=== PATIENT | female | born 1990 ===

== ENCOUNTER 2020-03-30 18:14 | Inpatient (IN) ==
[2020-03-30] MEDS ORDERED: *HR* LORazepam 2 MG/ML VIAL IM PRN (18:37)
[2020-03-30] MEDS ORDERED: haloperidoL 5 MG TABLET PO PRN (18:37)
[2020-03-30] MEDS ORDERED: Haloperidol Lactate 5 MG/ML VIAL IM PRN (18:37)
[2020-03-30] MEDS ORDERED: MOM Conc 10 ML UD.LIQ PO PRN (18:37)
[2020-03-30] MEDS ORDERED: hydrOXYzine pamoate 25 MG CAPSULE PO PRN (18:37)
[2020-03-30] MEDS ORDERED: Mag Hydrox/Al Hydrox/Simeth 30 ML UDC PO PRN (18:37)
[2020-03-30] MEDS ORDERED: *HR* LORazepam 1 MG TABLET PO PRN (18:37)
[2020-03-30] MEDS ORDERED: Acetaminophen 325 MG TABLET PO PRN (18:37)
[2020-03-30] MEDS: traZODone 50 MG TABLET PO PRN (21:09)
[2020-03-31] MEDS: traZODone 50 MG TABLET PO PRN (19:59)
[2020-03-31] MEDS ORDERED: BuPROPion XL (24 HR) 150 MG TABLET PO SCH (21:00)
[2020-04-01 09:10] VITALS: BP 111/73
== END 2020-04-01 13:23 | disposition home or self-care (01) | DRG 751 ==
LOC: 1ANU 18:14
PROVIDERS: ADMIT Psychiatry & Neurology Psychiatry; ATTEND Psychiatry & Neurology Psychiatry